=== PATIENT | male | born 1965 | race Caucasian/White ===

== ENCOUNTER → 2017-03-23 | Day surgery (SDC) | payer OTHER ==
[~2017-03-23] VITALS: Ht 177.8 cm; Wt 142.2 kg
[~2017-03-23] MED LIST: ASPI-973 PO; ATOR20TA PO; EPHEDrine Sulfate 50 mg/mL Inj IVPUSH PRN; HYDROcodone-APAP 5-325 mg Tablet PO PRN; LISI-571 PO; Labetalol 5 mg/mL 20 mL Inj IV PRN; Lactated Ringer's 1,000 ML IV SCH; Lactated Ringer's 500 ML IV PRN; Lidocaine 1%-Epi 1:100,000 20 mL Inj INFILTRATE ONE; METO25TA99 PO; MULT-1018 PO; Ondansetron 2 mg/mL 2 mL Inj IVPUSH PRN; Phenylephrine 10,000 mCg/mL Inj IVPUSH PRN; Propofol 10 mg/mL 20 mL Inj ONE; Sodium Bicarb 1 mEq/mL 50 mL Inj ONE; WARF5TAB PO; fentaNYL-PF 50 mCg/mL 2 mL Inj IVPUSH PRN; fentaNYL-PF 50 mCg/mL 2 mL Inj ONE
[2017-03-23] MEDS: Lactated Ringer's 1,000 ML IV SCH ×2 (07:50→09:00)
[2017-03-23 08:01] VITALS: BP 144/75; PULSE 82; RESP 16; O2SAT 96
[2017-03-23 09:16] LABS: INR 1.87 ratio
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
[2017-03-23 09:44] VITALS: BP 129/67; PULSE 88; RESP 16; O2SAT 95
[2017-03-23 10:04] VITALS: BP 130/72; PULSE 84; RESP 16; O2SAT 97
--- NOTE | 2017-03-23 10:12 | OP ---
[address] [address] OPERATIVE REPORT PATIENT: CINDY PATTON : 1965 MR#: [id number] ADMIT: 03/23/2017 JOB ID: [id number] DATE OF SURGERY: 03/23/2017 PREOPERATIVE DIAGNOSIS(ES): 1. Right carpal tunnel syndrome. 2. Right wrist foreign body. POSTOPERATIVE DIAGNOSIS(ES): 1. Right carpal tunnel syndrome. 2. Right wrist foreign body. PROCEDURES: 1. Right open carpal tunnel release. 2. Excision right wrist subcutaneous foreign body. SURGEON: Jimmie Vivas D.O. ANESTHESIA: Lonnie block. HISTORY: The patient is a pleasant 52-year-old male with a history of right hand pain and paresthesias. He was treated for a carpal tunnel syndrome conservatively with failure of conservative treatment. Thus, I gave the patient the option to proceed with a right open carpal tunnel release. He also had a longstanding foreign body also from a work related injury that caused him some discomfort while resting his wrist. It was localized on the volar radial aspect of the wrist. As we were proceeding with surgery for the right wrist for the carpal tunnel, we also got approved for excision of the foreign body. He understood the risks include, but are not limited to, neurovascular injury, tendon injury, infection, failure to resolve the patient's preoperative symptoms, stiffness, persistent pain, all of which may require further intervention. The patient had all questions answered. Consent was signed and placed in the chart. PROCEDURE IN DETAIL: The patient was brought to the operative suite and placed supine on the operating table. Surgical time-out was performed. Everyone in the room was in agreement. After appropriate anesthesia was obtained, the right arm was then prepped and draped in a sterile fashion. A 2 cm longitudinal incision was made in line with the radial aspect of the ring finger and the ulnar aspect of the palmaris longus. The incision was kept distal to the wrist crease and proximal to Ornelas cardinal line. Subcutaneous tissues were dissected with bipolar electrocautery utilized to maintain hemostasis throughout the procedure. The palmar fascia was first identified and incised longitudinally in line with the skin incision followed by exploration of the underlying transcarpal ligament. Transverse carpal ligament was then released in its entirety to include the distal extent of the antebrachial fascia. Copious irrigation was then performed followed by closure of the skin with 5-0 nylon in a simple interrupted fashion. Attention was then turned towards the foreign body. A longitudinal incision was made just radial to the FCR tendon overlying the foreign body. Dissection was carried through the subcutaneous tissue with the foreign body immediately identified. The foreign body was freed up from the surrounding soft tissues and removed in its entirety. The foreign body was thus disposed of. Copious irrigation was then performed. Final radiographs obtained to verify that the foreign body was completely removed and the skin closed with 5-0 nylon in a simple interrupted fashion. The patient was then placed in a bulky soft dressing. ESTIMATED BLOOD LOSS: Less than 1 cc. COMPLICATIONS: None. DISPOSITION: The patient tolerated the procedure well. Anesthesia was reversed. The patient was transferred back to recovery. POSTOPERATIVE PLAN: The patient will followup in my office in two weeks. I will remove the patient's sutures at that time and have him start working on range of motion and scar mobilization.
--- NOTE | 2017-03-23 18:24 | PCM.ANEP1 ---
Post Anesthesia PACU Phase 1 Assessment Anesthetic Administered: Other (soledad block) Level of Alertness: Awake, talking CARABALLO's with Equal Strength: Yes Pain: No Nausea or Vomiting: No CV Function & Hydration Stable: Yes Airway Device: na Oxygen Delivery: Room Air Lungs: Clear to Auscultation, Normal Air Movement Dermatome Level: Full Sensation PACU Phase 2 Assessment Complications: No Follow up Care: N/A Patient Instructions Provided: N/A Jean-Pierre Barreto MD Mar 23, 2017 18:24
== END | disposition home or self-care (01) ==
LOC: SAS 07:25
PROVIDERS: ATTEND Orthopaedic Surgery
DX: G56.01 Carpal tunnel syndrome, right upper limb (principal); S60.851A Superficial foreign body of right wrist, initial encounter; G47.33 Obstructive sleep apnea (adult) (pediatric); I44.2 Atrioventricular block, complete; I35.8 Other nonrheumatic aortic valve disorders; E78.5 Hyperlipidemia, unspecified; Z95.0 Presence of cardiac pacemaker; F17.210 Nicotine dependence, cigarettes, uncomplicated; F17.220 Nicotine dependence, chewing tobacco, uncomplicated; E66.01 Morbid (severe) obesity due to excess calories; Z68.42 Body mass index [BMI] 45.0-49.9, adult; Z95.2 Presence of prosthetic heart valve
CPT/HCPCS: 25248; 36415; 64721; 76000; 85610; J2704; J3010; J7120